=== PATIENT | female | born 1990 ===

== ENCOUNTER 2020-04-10 08:50 | Emergency (ER) | payer SELFPAY ==
[2020-04-10] MEDS ORDERED: MORPHINE 4 MG/ML SYR ONE ×2 (09:41→11:38)
[2020-04-10] MEDS ORDERED: ONDANSETRON 4 MG/2 ML VIAL ONE (09:41)
[2020-04-10 10:08] LABS: Absolute Lymphocytes (CBC) 1.2 K/uL (0.7-4.9); Basophils % 0.6 % (0-1.3); Hematocrit 29.9 % (36.0-45.0); Lymphocytes % 15.8 % (15.3-44.8); RBC Red Blood Cell Count 4.66 M/uL (3.86-4.86)
[2020-04-10 10:21] LABS: ALT/SGPT 26 U/L (12-78); AST/SGOT 19 U/L (15-37); Albumin 3.3 g/dL (3.4-5.0); Alkaline Phosphatase 62 U/L (45-117); BUN Blood Urea Nitrogen 8 mg/dL (7-18); Bicarbonate 24 mmol/L (21-32); Bilirubin Direct < 0.1 mg/dL (0-0.2); Bilirubin Total 0.5 mg/dL (0.2-1.0); Glucose Level 86 mg/dL (74-106); Lipase 81 U/L (73-393); Potassium 3.8 mmol/L (3.5-5.1); Protein, Total 8.9 g/dL (6.4-8.2); Sodium Level 139 mmol/L (136-145)
[2020-04-10 11:34] LABS: White Blood Cell Scan OK
[2020-04-10 11:35] LABS: Anisocytosis SLIGHT; Blood Morphology Comment NOTED (NOT SEEN); Hypochromasia 1+; Platelet Estimate ADEQ; Polychromasia SLIGHT
--- NOTE | 2020-04-10 12:35 | RAD REPORT ---
EXAM DESCRIPTION: CT - Abdomen Pelvis Wo Contrast - 04/10/2020 11:40 am CLINICAL HISTORY: Abdominal pain COMPARISON: None TECHNIQUE: Computed axial tomography of the abdomen and pelvis was obtained. IV and oral contrast we re not requested. All CT scans are performed using dose optimization technique as appropriate and may include automated exposure control or mA/KV adjustment according to patient size. FINDINGS: The evaluation of solid organs, vessels and bowel is limited secondary to the lack of con trast administration. The liver, spleen, pancreas, adrenals and kidneys appear grossly normal. The appendix is normal. There is no evidence of diverticulitis. 8 centimeter complex cystic mass left adnexa. No significant free fluid. The mass compresses the blad philip IMPRESSION: 8 centimeter complex mass left adnexa. Ultrasound recommended
[2020-04-10 13:11] LABS: Urine Blood TRACE (NEG); Urine Glucose NEGATIVE (NEG); Urine Protein 2+ (NEG); Urine Specific Gravity >1.030 (1.005-1.030); Urine pH 5.5 (5.0-7.0)
[2020-04-10] MEDS ORDERED: MEPERIDINE HCL 50 MG/ML ONE ×2 (13:15→14:35)
--- NOTE | 2020-04-10 13:55 | RAD REPORT ---
EXAM DESCRIPTION: US - Transvaginal Study Probe - 04/10/2020 1:34 pm CLINICAL HISTORY: abnormal CT/Complex mass left adenexa COMPARISON: Abdomen Pelvis Wo Contrast dated 04/10/2020 TECHNIQUE: Endovaginal sonography was performed. FINDINGS: Endometrial stripe is 5 mm or less in thickness. No endometrial mass or polyp seen. No colleen metrial mass. Uterus is normal size. No free fluid in the cul de sac. Right ovary was not identified, obscured by bowel gas. Normal size right ovary is seen more superiorl y in the posterior right pelvis on the CT scan. Left ovarian tissue is identified but difficult to clearly measure boundaries. Left ovary is not appe ar abnormally enlarged itself. Abutting the ovary and extending superiorly there is an 8 centimeter a nechoic mass. There is a septation present. This is potentially 2 abutting cystic masses. No solid mu ral nodule identifiable. The left adnexal cystic mass is large, greater than typically seen for a functional cyst. This could be ovarian or paraovarian in etiology. Cystadenoma is possible as well. Follow-up is needed based on size and presence of septation. A short-term sonographic re-evaluation i n 3 months could be performed to evaluate for any signs of involution. IMPRESSION: Approximately 8 centimeter anechoic thin-walled cystic mass in the midline and left-side pelvis. This may be a single 8 centimeter cyst with septation or 2 abutting cysts. Physiologic cyst or cysts would be possible. A follow-up pelvic ultrasound in 3 months could be perfo rmed to evaluate for any evidence of involution. Cystadenoma would also be a primary consideration. Cystadenocarcinoma would be much less likely but i s not entirely excluded.
--- NOTE | 2020-04-10 14:21 | ER ---
Nurse's Notes [facility] Name: Domo Coker Age: 29 yrs Sex: Female : 1990 Arrival Date: 04/10/2020 Time: 08:54 Bed 20 Private MD: Diagnosis: Unspecified ovarian cysts Presentation: 04/10 08:57 Chief complaint: Sudden sharp left lower abdominal pain that started 2 days ago. Denies hb N/V/D. Coronavirus screen: At this time, the client does not indicate any symptoms associated with coronavirus-19. Ebola Screen: No symptoms or risks identified at this time. Initial Sepsis Screen: Does the patient meet any 2 criteria? No. Patient's initial sepsis screen is negative. Does the patient have a suspected source of infection? No. Patient's initial sepsis screen is negative. Risk Assessment: Do you want to hurt yourself or someone else? Patient reports no desire to harm self or others. Onset of symptoms was April 08, 2020. 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 - Social history:: Smoking status: Patient denies any tobacco usage or history of. Screenin:33 Abuse screen: Denies threats or abuse. Denies injuries from another. Nutritional ph screening: No deficits noted. Tuberculosis screening: No symptoms or risk factors identified. Fall Risk None identified. Assessment: 09:30 General: Appears in no apparent distress. uncomfortable, well groomed, Behavior is ph calm, cooperative, appropriate for age, Denies fever, feeling ill. Pain: Complains of pain in left lower quadrant. Neuro: Level of Consciousness is awake, alert, obeys commands, Oriented to person, place, time, situation. Cardiovascular: Capillary refill < 3 seconds in left in bilateral Patient's skin is warm and dry. Respiratory: Airway is patent Respiratory effort is even, unlabored. GI: Abdomen is round non-distended, Reports lower abdominal pain, nausea, Patient currently denies diarrhea, vomiting. : No signs and/or symptoms were reported regarding the genitourinary system. Derm: Skin is intact, is healthy with good turgor, Skin is pink, warm \T\ dry. Musculoskeletal: Circulation, motion, and sensation intact. Range of motion: intact in all extremities. 10:35 Reassessment: Patient appears in no apparent distress at this time. Patient and/or ph family updated on plan of care and expected duration. Pain level reassessed. Patient is alert, oriented x 3, equal unlabored respirations, skin warm/dry/pink. 11:31 Reassessment: Patient appears in no apparent distress at this time. Patient and/or ph family updated on plan of care and expected duration. Pain level reassessed. Patient is alert, oriented x 3, equal unlabored respirations, skin warm/dry/pink. Pt reports that pain has increased to 8/10, denies nausea, ERP notified, see MAR, awaiting CT scan. 12:19 Reassessment: assumed care of pt. pt states she still has L flank pain. CVA tenderness ks7 palpated on L side. pt nauseous d/t pain. pt uncomfortable but not in distress. 13:40 Reassessment: pt states pain meds helped before her trip to [place], moving around ks7 transferring from wheelchair to bed made her SOB and aggravated her pain. pt resting in bed. Vital Signs: 08:57 BP 191 / 117; Pulse 94; Resp 16; Temp 98.2(O); Pulse Ox 100% on R/A; Weight 87.09 kg; hb Height 5 ft. 8 in. (172.72 cm); Pain 10/10; 10:32 BP 155 / 98; Pulse 64; Resp 18; Pulse Ox 99% ; Pain 6/10; ph 11:32 BP 168 / 98; Pulse 67; Resp 20; Pulse Ox 98% on R/A; ph 12:26 BP 164 / 105; Pulse 79; Resp 18; Pulse Ox 98% on R/A; ph 13:00 BP 174 / 105; Pulse 77; Resp 18; Pulse Ox 99% on R/A; Pain 7/10; ks7 13:41 BP 148 / 97; Pulse 95; Resp 20; Pulse Ox 100% on R/A; Pain 7/10; ks7 14:04 BP 160 / 93; Pulse 74; Resp 18; Pulse Ox 99% on R/A; Pain 5/10; ks7 14:34 BP 165 / 85; Pulse 70; Resp 18; Temp 98(TE); Pulse Ox 100% on R/A; Pain 6/10; ks7 08:57 Body Mass Index 29.19 (87.09 kg, 172.72 cm) hb ED Course: 08:54 Patient arrived in ED. bp1 08:59 Triage completed. hb 09:00 Man Johnston PA is PHCP. jr8 09:00 Arm band placed on. hb 09:01 Guy Paniagua MD is Attending Physician. jr8 09:27 Airam Chirinos, RN is Primary Nurse. ph 09:45 Missed attempt(s): 22 gauge in right antecubital area. Bleeding controlled, band aid ph applied, catheter tip intact. 09:50 Initial lab(s) drawn, by me, sent to lab. Inserted saline lock: 24 gauge in right hand, ph using aseptic technique. Blood collected. 10:33 Patient has correct armband on for positive identification. Placed in gown. Bed in low ph position. Call light in reach. Side rails up X 1. Pulse ox on. NIBP on. Door closed. Noise minimized. Warm blanket given. 11:40 Abdomen In Process Unspecified. EDMS 12:20 Primary Nurse role handed off by Airam Chirinos, RN ks7 12:20 Tata Taylor, RN is Primary Nurse. ks7 13:17 Patient taken to ultrasound. ks7 13:33 US Transvaginal Study (Probe) In Process Unspecified. EDMS 13:39 Patient moved back from ultrasound. ks7 14:20 Shannon Douglas MD is Referral Physician. jr8 14:34 Patient did not have IV access during this emergency room visit. IV discontinued, ks7 intact, bleeding controlled, No redness/swelling at site. Pressure dressing applied. 14:35 Nurse Practitioner and/or Physician Hotel Assistant Manager to see patient. PA discussed dc ks7 instructions for pain mgmt and s/s to come back to ED. 14:36 No provider procedures requiring assistance completed. ks7 Administered Medications: 09:50 Drug: Zofran (Ondansetron) 4 mg Route: IVP; Site: right hand; ph 10:32 Follow up: Response: No adverse reaction ph 09:52 Drug: morphine 4 mg Route: IVP; Site: right hand; ph 10:31 Follow up: Response: No adverse reaction; Pain is decreased; RASS: Alert and Calm (0) ph 11:30 Drug: morphine 4 mg Route: IVP; Site: right hand; ph 12:00 Follow up: Response: No adverse reaction; Pain is decreased ph 13:08 Drug: Demerol - Meperidine 12.5 mg Route: IVP; Site: right hand; ks7 14:30 Drug: Demerol - Meperidine 12.5 mg Route: IVP; Site: right hand; ks7 Outcome: 14:20 Discharge ordered by . jr8 14:34 Discharged to home ambulatory. ks7 14:34 Condition: stable 14:34 Discharge instructions given to patient, Instructed on discharge instructions, follow up and referral plans. medication usage, Demonstrated understanding of instructions, follow-up care, medications, wound care, Prescriptions given X 2, Following a medical screening exam, the patient was provided information regarding alternative care sites and resources available per registration personnel. 14:36 Patient left the ED. ks7 Signatures: Dispatcher [employer] EDMS Man Johnston PA PA jr8 Airam Chirinos RN RN Mary Shetty, RN Norma Valdovinos Kathleen, JARVIS RN ks7 Corrections: (The following items were deleted from the chart) 13:31 13:30 BP 174 / 105; Pulse 77bpm; Resp 18bpm; Pulse Ox 99% RA; Pain 7/10; ks7 ks7
--- NOTE | 2020-04-10 14:21 | EDPHYS ---
Physician Documentation [facility] Name: Domo Coker Age: 29 yrs Sex: Female : 1990 Arrival Date: 04/10/2020 Time: 08:54 Bed 20 Private MD: EDUARDO Physician Guy Paniagua HPI: 04/10 10:13 This 29 yrs old Female presents to ER via Ambulatory with complaints of Lower Left jr8 Abdominal Pain. 10:13 The patient presents with abdominal pain in the left lower quadrant. Onset: The jr8 symptoms/episode began/occurred acutely, 2 day(s) ago. The symptoms radiate to the left flank. Associated signs and symptoms: Pertinent negatives: nausea, vomiting, and diarrhea. The symptoms are described as stabbing. Modifying factors: The symptoms are alleviated by nothing, the symptoms are aggravated by nothing. Severity of pain: At its worst the pain was moderate in the emergency department the pain is unchanged. The patient has not experienced similar symptoms in the past. The patient has not recently seen a physician. 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 - Social history:: Smoking status: Patient denies any tobacco usage or history of. ROS: 10:13 Eyes: Negative for injury, pain, redness, and discharge, ENT: Negative for injury, jr8 pain, and discharge, Neck: Negative for injury, pain, and swelling, Cardiovascular: Negative for chest pain, palpitations, and edema, Respiratory: Negative for shortness of breath, cough, wheezing, and pleuritic chest pain, Back: Negative for injury and pain, MS/Extremity: Negative for injury and deformity, Skin: Negative for injury, rash, and discoloration, Neuro: Negative for headache, weakness, numbness, tingling, and seizure. 10:13 Abdomen/GI: Positive for abdominal pain, Negative for nausea, vomiting, and diarrhea, abdominal cramps, abdominal distension, anorexia, dysphagia, hematemesis, black/tarry stool, rectal pain, rectal bleeding, bowel incontinence, flatulence. Exam: 12:19 Eyes: Pupils equal round and reactive to light, extra-ocular motions intact. Lids and jr8 lashes normal. Conjunctiva and sclera are non-icteric and not injected. Cornea within normal limits. Periorbital areas with no swelling, redness, or edema. ENT: Nares patent. No nasal discharge, no septal abnormalities noted. Tympanic membranes are normal and external auditory canals are clear. Oropharynx with no redness, swelling, or masses, exudates, or evidence of obstruction, uvula midline. Mucous membranes moist. Neck: Trachea midline, no thyromegaly or masses palpated, and no cervical lymphadenopathy. Supple, full range of motion without nuchal rigidity, or vertebral point tenderness. No Meningismus. Cardiovascular: Regular rate and rhythm with a normal S1 and S2. No gallops, murmurs, or rubs. Normal PMI, no JVD. No pulse deficits. Respiratory: Lungs have equal breath sounds bilaterally, clear to auscultation and percussion. No rales, rhonchi or wheezes noted. No increased work of breathing, no retractions or nasal flaring. Back: No spinal tenderness. No costovertebral tenderness. Full range of motion. Skin: Warm, dry with normal turgor. Normal color with no rashes, no lesions, and no evidence of cellulitis. MS/ Extremity: Pulses equal, no cyanosis. Neurovascular intact. Full, normal range of motion. Neuro: Awake and alert, GCS 15, oriented to person, place, time, and situation. Cranial nerves II-XII grossly intact. Motor strength 5/5 in all extremities. Sensory grossly intact. Cerebellar exam normal. Normal gait. 12:19 Abdomen/GI: Inspection: obese Bowel sounds: active, all quadrants, Palpation: soft, in all quadrants, mild abdominal tenderness, in the anterior aspect of left lateral abdomen, mass, is not appreciated, rebound tenderness, is not appreciated, voluntary guarding, is not appreciated, involuntary guarding, is not appreciated, no appreciated organomegaly, Indicators: McBurney's point is not tender, Castle's sign is negative, Rovsing's sign is negative, Liver: tenderness, is not appreciated. Vital Signs: 08:57 BP 191 / 117; Pulse 94; Resp 16; Temp 98.2(O); Pulse Ox 100% on R/A; Weight 87.09 kg; hb Height 5 ft. 8 in. (172.72 cm); Pain 10/10; 10:32 BP 155 / 98; Pulse 64; Resp 18; Pulse Ox 99% ; Pain 6/10; ph 11:32 BP 168 / 98; Pulse 67; Resp 20; Pulse Ox 98% on R/A; ph 12:26 BP 164 / 105; Pulse 79; Resp 18; Pulse Ox 98% on R/A; ph 13:00 BP 174 / 105; Pulse 77; Resp 18; Pulse Ox 99% on R/A; Pain 7/10; ks7 13:41 BP 148 / 97; Pulse 95; Resp 20; Pulse Ox 100% on R/A; Pain 7/10; ks7 14:04 BP 160 / 93; Pulse 74; Resp 18; Pulse Ox 99% on R/A; Pain 5/10; ks7 14:34 BP 165 / 85; Pulse 70; Resp 18; Temp 98(TE); Pulse Ox 100% on R/A; Pain 6/10; ks7 08:57 Body Mass Index 29.19 (87.09 kg, 172.72 cm) hb MDM: 09:01 Patient medically screened. jr8 14:16 Data reviewed: vital signs, nurses notes, lab test result(s), radiologic studies, CT jr8 scan, ultrasound. Data interpreted: Pulse oximetry: on room air is 99 %. Interpretation: normal. Counseling: I had a detailed discussion with the patient and/or guardian regarding: the historical points, exam findings, and any diagnostic results supporting the discharge/admit diagnosis, lab results, radiology results. 14:18 ED course: Patient has 8 cm left adenexal mass. No other acute lab findings. Patients jr8 pain better. No blood flow abnormality on US noted. Discussed with patient that if she is not tolerating the pain we can attempt to transfer for gynecology to look at her. Patient wants to go home at this time. Knows and will come back if she worsens. Will send home on pain and nausea medications . 04/10 09:01 Order name: Basic Metabolic Panel; Complete Time: 11:06 8 04/10 09:01 Order name: CBC with Diff; Complete Time: 11:39 jr8 04/10 09:01 Order name: Hepatic Function; Complete Time: 11:06 jr8 04/10 09:01 Order name: Lipase; Complete Time: 11:06 [facility] 04/10 10:15 Order name: CBC Smear Scan; Complete Time: 11:39 [facility] 04/10 11:27 Order name: Urine Dipstick--Ancillary (enter results); Complete Time: 13:38 [facility] 04/10 11:26 Order name: Abdomen ; Complete Time: 12:36 [facility] 04/10 11:27 Order name: Urine --Ancillary (enter results); Complete Time: 13:38 [facility] 04/10 12:37 Order name: US Transvaginal Study (Probe); Complete Time: 14:12 [facility] 04/10 09:01 Order name: IV Saline Lock; Complete Time: 10:23 [facility] 04/10 09:01 Order name: Labs collected and sent; Complete Time: 10:23 [facility] 04/10 09:01 Order name: Urine Test (obtain specimen); Complete Time: 11:33 [facility] 04/10 09:01 Order name: Urine Dipstick-Ancillary (obtain specimen); Complete Time: 11:32 [facility] Administered Medications: 09:50 Drug: Zofran (Ondansetron) 4 mg Route: IVP; Site: right hand; ph 10:32 Follow up: Response: No adverse reaction ph 09:52 Drug: morphine 4 mg Route: IVP; Site: right hand; ph 10:31 Follow up: Response: No adverse reaction; Pain is decreased; RASS: Alert and Calm (0) ph 11:30 Drug: morphine 4 mg Route: IVP; Site: right hand; ph 12:00 Follow up: Response: No adverse reaction; Pain is decreased ph 13:08 Drug: Demerol - Meperidine 12.5 mg Route: IVP; Site: right hand; ks7 14:30 Drug: Demerol - Meperidine 12.5 mg Route: IVP; Site: right hand; ks7 Disposition: 16:15 Co-signature as Attending Physician, Guy Paniagua MD I agree with the assessment and tal plan of care. Disposition: 04/10/20 14:20 Discharged to Home. Impression: Unspecified ovarian cysts. - Condition is Stable. - Discharge Instructions: Ovarian Cyst. - Prescriptions for Tylenol- Codeine #3 300-30 mg Oral Tablet - take 2 tablet by ORAL route every 6 hours As needed; 30 tablet. Zofran 4 mg Oral Tablet - take 1 tablet by ORAL route every 12 hours As needed; 20 tablet. - Medication Reconciliation Form, Thank You Letter, Antibiotic Education, Prescription Opioid Use form. - Follow up: Shannon Douglas MD; When: 2 - 3 days; Reason: Recheck today's complaints, Continuance of care, Re-evaluation by your physician. - Problem is new. - Symptoms have improved. Signatures: Dispatcher [employer] EDHI Guy Paniagua MD MD cha Roszak, Josh, PA PA jr8 Airam Chirinos RN RN ph Mary Shetty, RN RN aTta Taylor RN RN ks7 Corrections: (The following items were deleted from the chart) 10:14 10:13 Associated signs and symptoms: Pertinent positives: nausea and vomiting, jr8 jr8 11:26 11:06 Abdomen Pelvis W Con+CT.RAD.BRZ ordered. [facility] 14:36 14:20 04/10/2020 14:20 Discharged to Home. Impression: Unspecified ovarian cysts. ks7 Condition is Stable. Forms are Medication Reconciliation Form, Thank You Letter, Antibiotic Education, Prescription Opioid Use. Follow up: Shannon Douglas; When: 2 - 3 days; Reason: Recheck today's complaints, Continuance of care, Re-evaluation by your physician. Problem is new. Symptoms have improved. jr8
[2020-04-10 14:53] VITALS: BP 165/85; TEMP 98; O2SAT 100
== END 2020-04-10 14:36 | disposition home or self-care (01) ==
LOC: ER 08:50
DX: N83.209 Unspecified ovarian cyst, unspecified side (principal)
CPT/HCPCS: 36415; 74176; 76830; 80048; 80076; 81003; 81025; 83690; 85025; 96374; 96375; 99284; J2175; J2405